=== PATIENT | female | born 1990 | race African-American/Black ===

== ENCOUNTER 2016-06-21 19:03 | Emergency (ER) | payer MEDICAID ==
[~2016-06-21 19:03] MED LIST: AMOX500T PO; FLUC150T PO; HYDR-971 PO; METO10TA81 PO; NITR100C62 PO
[2016-06-21 19:17] VITALS: BP 113/68
[2016-06-21] MEDS ORDERED: ACET1TAB33 PO (19:34)
[2016-06-21] MEDS ORDERED: AMOX500C PO (19:34)
--- NOTE | 2016-06-21 19:34 | PHYS DOC ---
Past Medical History Past Medical History: Seizure Past Surgical History: Other Additional Past Surgical Histo: hernia Alcohol Use: None Drug Use: None Adult General Chief Complaint Chief Complaint: DENTAL PROBLEM [facility] Patient is a 26 year old female presents with complaint of right-sided dental pain that radiates up into her head causing headache and altered sensations of numbness to her jaw that began yesterday. She states that she was eating at a local establishment when she cracked her tooth. She began having progressive pain to the right lower jaw that radiates as described previously. She denies any antibiotic use within the past 30 days. She denies any previous dental work within the past 2 weeks. Patient is currently in her second trimester . She's been [facility] at [facility]. She denies any concerns for at this time. Review of Systems Review of Systems Constitutional: Denies fever or chills [] Eyes: Denies change in visual acuity, redness, or eye pain [] HENT: Denies nasal congestion or sore throat [] Respiratory: Denies cough or shortness of breath [] Cardiovascular: No additional information not addressed in HPI [] GI: Denies abdominal pain, nausea, vomiting, bloody stools or diarrhea [] : Denies dysuria or hematuria [] Musculoskeletal: Denies back pain or joint pain [] Integument: Denies rash or skin lesions [] Neurologic: Denies headache, focal weakness or sensory changes [] Endocrine: Denies polyuria or polydipsia [] Allergies Allergies Allergies Coded Allergies Type Severity Reaction Last Updated Verified aspirin Allergy Intermediate [facility] 08/02/15 Yes azithromycin [facility] Yes Physical Exam Physical Exam Constitutional: Well developed, well nourished, mild distress, non-toxic appearance. HENT: Normocephalic, atraumatic, bilateral external ears normal, oropharynx moist, no oral exudates, nose normal. There is no trismus. There is widespread dental caries and very stages of decay. The tooth of concern is the right first mandibular molar which is approximately one third of the tooth missing into the dentin. There is no active purulent drainage. There is minimal amount of gingival inflammation without fluctuant pocket. Eyes: PERRLA, EOMI, conjunctiva normal, no discharge. [] Neck: Normal range of motion, no tenderness, supple, no stridor. No cervical lymphadenopathy. Cardiovascular:Heart rate regular rhythm, no murmur [] Lungs & Thorax: Bilateral breath sounds clear to auscultation [] Abdomen: Bowel sounds normal, soft, no tenderness, no masses, no pulsatile masses. [] Skin: Warm, dry, no erythema, no rash. [] Back: No tenderness, no CVA tenderness. [] Extremities: No tenderness, no cyanosis, no clubbing, ROM intact, no edema. [] Neurologic: Alert and oriented X 3, normal motor function, normal sensory function, no focal deficits noted. [] Psychologic: Affect normal, judgement normal, mood normal. [] Current Patient Data Vital Signs Vital Signs Date Time Temp Pulse Resp B/P Pulse Ox O2 Delivery O2 Flow Rate FiO2 06/21/16 19:17 99.1 75 18 99 Room Air 99.1 EKG EKG [] Radiology/Procedures Radiology/Procedures [] Course & Med Decision Making Course & Med Decision Making Pertinent Labs and Imaging studies reviewed. (See chart for details) [] Dragon Disclaimer Dragon Disclaimer This electronic medical record was generated, in whole or in part, using a voice recognition dictation system. Departure Departure Impression: Primary Impression: Pain, dental Additional Impression: Dental caries Disposition: HOME, SELF-CARE Condition: GOOD Referrals: NO PCP (PCP) Patient Instructions: Dental Caries-Brief Additional Instructions: 1. Take the medication as prescribed. 2. Review the discharge instructions provided for self-care and reasons to return the emergency department. 3. 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 Scripts Acetaminophen With Codeine (Acetaminophen-Cod #3 Tablet)1 Each Tablet1 Tab PO PRN Q6HRS PRN PAIN #15 TAB Prov:BONNIE MORALES 06/21/16 Amoxicillin 500 Mg [id number] Mg PO TID #30 CAP Prov:BONNIE MORALES 06/21/16 Problem Qualifiers BONNIE MORALES Jun 21, 2016 19:34
[2016-06-22] MEDS ORDERED: HYDR-971 PO (17:57)
== END 2016-06-21 19:40 | disposition home or self-care (01) ==
LOC: ER 19:03
DX: O26.892 Other specified pregnancy related conditions, second trimester (principal); K02.9 Dental caries, unspecified; R20.0 Anesthesia of skin; R51 Headache; Z3A.00 Weeks of gestation of pregnancy not specified; Z88.1 Allergy status to other antibiotic agents; Z88.6 Allergy status to analgesic agent
CPT/HCPCS: 99283

== ENCOUNTER 2016-06-22 16:32 | Emergency (ER) | payer MEDICAID ==
[~2016-06-22] VITALS: Ht 167.6 cm; Wt 68.0 kg
[~2016-06-22 16:32] MED LIST changes: +ACET1TAB33 PO; +AMOX500C PO
[2016-06-22 16:57] VITALS: BP 110/57
[2016-06-22] MEDS ORDERED: HYDROCODONE/APAP 5/325MG TABLET. ONE (17:34)
--- NOTE | 2016-06-22 17:43 | PHYS DOC ---
Past Medical History Past Medical History: Seizure Past Surgical History: Other Additional Past Surgical Histo: hernia Additional Information: Nonsmoker Alcohol Use: None Drug Use: None Adult General Chief Complaint Chief Complaint: Toothache HPI HPI Patient is a 26 year old female who presents with right-sided dental pain for 3 days. She denies any fever. The patient was seen here yesterday for the same and was prescribed amoxicillin and Tylenol #3. She states that the pain medication is not helping to control her pain. She is currently 21 weeks . We had a discussion about risk/benefit of narcotic medications during . She verbalizes understanding of the risks and requests prescription for a different pain medication to help control her pain. [place] [facility] [place] She does not have a PCP. Review of Systems Review of Systems Constitutional: Denies fever or chills. [] Eyes: Denies change in visual acuity, redness, or eye pain. [] HENT: Denies ear pain, nasal congestion or sore throat. Reports dental pain. Integument: Denies rash or skin lesions. [] Current Medications Current Medications Current Medications Medications (Trade) Dose Ordered Sig/Adams Start Time Stop Time Status Last Admin Dose Admin Acetaminophen/ Hydrocodone Bitart (Lortab 5/325) 1 tab STK-MED ONCE 06/22/16 17:34 06/22/16 17:35 DC Allergies Allergies Allergies Coded Allergies Type Severity Reaction Last Updated Verified aspirin Allergy Intermediate [facility] 08/02/15 Yes azithromycin Allergy Intermediate [facility] 08/02/15 Yes Physical Exam Physical Exam Constitutional: Well developed, well nourished, no acute distress, non-toxic appearance. [] HENT: Normocephalic, atraumatic, bilateral external ears normal, oropharynx moist, no oral exudates, nose normal. Bilateral TMs without erythema or bulging. There is no posterior pharyngeal erythema or tonsillar edema. There is tenderness over teeth #5 and #29 without surrounding gingival edema or dental abscess. Eyes: PERRLA, EOMI, conjunctiva normal, no discharge. [] Skin: Warm, dry, no erythema, no rash. [] Neurologic: Alert and oriented X 3, normal motor function, normal sensory function, no focal deficits noted. [] Psychologic: Affect normal, judgement normal, mood normal. [] Current Patient Data Vital Signs Vital Signs Date Time Temp Pulse Resp B/P Pulse Ox O2 Delivery O2 Flow Rate FiO2 06/22/16 16:57 99.1 69 18 110/57 100 Room Air 99.1 EKG EKG [] Radiology/Procedures Radiology/Procedures [] Course & Med Decision Making Course & Med Decision Making Pertinent Labs and Imaging studies reviewed. (See chart for details) [] Dragon Disclaimer Dragon Disclaimer This electronic medical record was generated, in whole or in part, using a voice recognition dictation system. Departure Departure Impression: Primary Impression: Pain, dental Disposition: HOME, SELF-CARE Condition: STABLE Referrals: NO PCP (PCP) Patient Instructions: Dental Pain, [id number] Additional Instructions: Please continue to take the antibiotic prescribed yesterday. Please take the newly prescribed pain medication as directed. Do not drive or operate heavy machinery while taking pain medication. Please follow-up with a dentist as soon as possible. Return to the emergency department if you have any new or concerning symptoms. Scripts Hydrocodone/Apap 5-325 (Fate 5-325 Tablet)1 Each Tablet1 Tab PO PRN Q6HRS PRN PAIN #20 TAB Prov:JIMENA GAVIRIA 06/22/16 JIMENA GAVIRIA Jun 22, 2016 17:43
[2016-06-22] MEDS ORDERED: HYDROCODONE/APAP 5/325MG TABLET. PO ONE (17:45)
[2016-06-22] MEDS ORDERED: HYDR-971 PO (17:57)
== END 2016-06-22 18:18 | disposition home or self-care (01) ==
LOC: ER 16:32
DX: O26.892 Other specified pregnancy related conditions, second trimester (principal); K08.89 Other specified disorders of teeth and supporting structures; Z3A.21 21 weeks gestation of pregnancy; Z88.6 Allergy status to analgesic agent; Z88.1 Allergy status to other antibiotic agents
CPT/HCPCS: 99283

== ENCOUNTER 2017-07-26 20:15 | Emergency (ER) | payer OTHER, MEDICAID ==
[2017-07-26] MEDS: HYDROcodone/APAP 5/325MG 1 TAB TABLET PO (21:10)
== END 2017-07-26 21:41 | disposition home or self-care (01) ==
LOC: ER 20:15
DX: M25.522 Pain in left elbow (principal); M79.602 Pain in left arm; R51 Headache; Z88.1 Allergy status to other antibiotic agents; Z88.6 Allergy status to analgesic agent; V43.02XA Car driver injured in collision with other type car in nontraffic accident, initial encounter; Y93.I9 Activity, other involving external motion; Y92.481 Parking lot as the place of occurrence of the external cause; Y99.8 Other external cause status
CPT/HCPCS: 73080; 99284